=== PATIENT | female | born 1985 | race African-American/Black ===

== ENCOUNTER 2020-06-03 08:38 | Emergency (ER) | payer SELFPAY ==
[~2020-06-03] VITALS: Ht 162.6 cm; Wt 87.5 kg
[2020-06-03] MEDS ORDERED: AZITHROMYCIN250 MG PO (08:57)
[2020-06-03] MEDS ORDERED: DECADRON6 MG PO (08:57)
--- NOTE | 2020-06-03 09:20 | Emergency Department Note ---
History of Present Illnes History of Present Illness Chief Complaint: COVID PUI History of Present Illness This is a 34 year old female arrived to the ED with generalized malaise and weakness for 2 weeks. 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 Any updates have been documented here. Past Medical History Recent Fever: No Clinical Suspicion of Infectio: No New/Unexplained Change in Ment: No Past Medical History: None Other Surgery: Right eye Social History Smoking Cessation: Current some day smoker Alcohol Use: Social Physically hurt or threatened: No Review of Systems Review of Systems Constitutional: Reports as per HPI, Reports fever, Reports malaise, Reports weakness EENTM: Reports no symptoms Cardiovascular: Reports no symptoms Respiratory: Reports as per HPI Gastrointestinal: Reports no symptoms Genitourinary: Reports no symptoms Musculoskeletal: Reports no symptoms Integumentary: Reports no symptoms Neurological: Reports no symptoms Psychological: Reports no symptoms Endocrine: Reports no symptoms Hematological/Lymphatic: Reports no symptoms Physical Exam Related Data Allergies: Coded Allergies: No Known Allergies (Unverified , 06/03/20) Triage Vital Signs Vital Signs Date Time Temp Pulse Resp B/P (MAP) Pulse Ox O2 Delivery O2 Flow Rate FiO2 06/03/20 08:43 98.5 86 18 130/68 100 Room Air Vital signs reviewed: Yes Physical Exam CONSTITUTIONAL Constitutional: Present well-developed, Present well-nourished HENT HENT: Present normocephalic, Present atraumatic, Present oropharynx clear/moist, Present nose normal HENT L/R: Present left ext ear normal, Present right ext ear normal EYES Eyes: Reports PERRL, Reports conjunctivae normal NECK Neck: Present ROM normal PULMONARY Pulmonary: Present effort normal, Present breath sounds normal CARDIOVASCULAR Cardiovascular: Present regular rhythm, Present heart sounds normal, Present capillary refill normal, Present normal rate GASTROINTESTINAL Abdominal: Present soft, Present nontender, Present bowel sounds normal GENITOURINARY Genitourinary: Present exam deferred SKIN Skin: Present warm, Present dry MUSCULOSKELETAL Musculoskeletal: Present ROM normal NEUROLOGICAL Neurological: Present alert, Present oriented x 3, Present no gross motor or se nsory deficits PSYCHOLOGICAL Psychological: Present mood/affect normal, Present judgement normal Assessment & Plan Medical Decision Making MDM 34-year-old well-appearing female arrives to the ED with complaints generalized malaise. Pt also with complaints of cough fever loss of taste and smell. Patient is clinically presenting with signs and symptoms consistent with Covid 19. Patient informed she is positive until proven otherwise. Patient's oxygen saturation remained 99% even on exertion, no evidence of tachypnea or dyspnea noted in the ED. Spoke present length about the importance of sleeping on her stomach and rotating from side to side. Z-Courtney and Decadron given, signs and symptoms for return discussed. In the light of the Covid pandemic, disaster medicine care was given- patient te sted for Covid 19 in the ED, no indications for a chest x-ray at this time given normal oxygen saturation and respiratory status. Assessment & Plan Final Impression: (1) COVID-19 Depart Disposition: HOME, SELF-CARE Last Vital Signs Date Time Temp Pulse Resp B/P (MAP) Pulse Ox O2 Delivery O2 Flow Rate FiO2 06/03/20 08:43 98.5 86 18 130/68 100 Room Air Home Meds Active Scripts Dexamethasone (Decadron) 6 Mg Tablet, 6 MG PO DAILY, #5 Prov:ERNST BACK, 06/03/20 Azithromycin (Z-COURTNEY) 250 Mg Tablet, 1 PKG PO DIRECTED, #1 PKG 0 Refills Prov:ERNST BACK DO 06/03/20 ERNST BACK DO Jun 03, 2020 09:20
--- NOTE | 2020-06-03 09:28 | NUR ---
Pt has nose bleed s/p covid swab to Left nostril. Guaze and pressure applied. Bleeding controlled at this time.
[2020-06-03] MEDS ORDERED: ACETAMINOPHEN 325 MG TAB PO ONE (09:45)
--- NOTE | 2020-06-03 09:46 | NUR ---
Dr. Jones evaluated pt for epistaxis, bleeding controlled. Ok to discharge home.
--- NOTE | 2020-06-03 09:49 | NUR ---
Bleeding controlled no more bleeding noted. Pt instructed on home care and to return to the ER if bleeding starts up and unable to stop. Pt verbalized understanding.
== END 2020-06-03 09:50 | disposition home or self-care (01) ==
LOC: ER 09:00
DX: U07.1 COVID-19 (principal); R53.1 Weakness; R05 Cough; R53.81 Other malaise; R51 Headache; F17.210 Nicotine dependence, cigarettes, uncomplicated
CPT/HCPCS: 87635; 99282